=== PATIENT | male | born 1990 | race Caucasian/White ===

== ENCOUNTER 2025-05-04 14:49 | Emergency (ER) | payer SELFPAY ==
[2025-05-04 15:14] LABS: APPEARANCE,URINE CLOUDY; BASOPHILS ABSOLUTE AUTO 0.06 K/uL (0.00-0.20); BASOPHILS PERCENT AUTO 0.7 % (0.0-1.0); EOSINOPHILS ABSOLUTE AUTO 0.15 K/uL (0.00-0.45); EOSINOPHILS PERCENT AUTO 1.8 % (0.0-6.0); GLUCOSE,URINE NEGATIVE (NEGATIVE); IMMATURE GRAN ABSOLUTE AUTO 0.02 K/uL (0.00-0.05); IMMATURE GRAN PERCENT AUTO 0.2 % (0.0-0.4); LYMPHOCYTES ABSOLUTE AUTO 0.75 K/uL (1.00-4.80); LYMPHOCYTES PERCENT AUTO 9.2 % (24.0-44.0); MONOCYTES ABSOLUTE AUTO 0.51 K/uL (0.00-0.80); MONOCYTES PERCENT AUTO 6.3 % (0.0-8.0); NEUTROPHILS ABSOLUTE AUTO 6.62 K/uL (1.80-7.70); NEUTROPHILS PERCENT AUTO 81.8 % (41.0-71.0); NRBC ABSOLUTE 0.00 K/uL (0.00-0.02); NRBC PERCENT 0.0 /100WBC (0.0-0.2); OCCULT BLOOD,URINE NEGATIVE (NEGATIVE); PLATELET COUNT,PLT 448 K/uL (150-400); RED BLOOD CELL COUNT 6.87 M/uL (4.52-5.90); WHITE BLOOD CELL COUNT,WBC 8.11 K/uL (3.9-11.3)
[2025-05-04] MEDS: Ketorolac 30 MG/ML SDV IVPUSH ONE (15:14)
[2025-05-04] MEDS: Ondansetron 4 MG/2 ML SDV IVPUSH ONE (15:15)
[2025-05-04 15:21] LABS: EPITHELIAL CELLS,URINE RARE (NONE-FEW)
[2025-05-04 15:27] LABS: INR 0.99 (0.86-1.11); PTT,PARTIAL THROMBOPLSTIN TIME 22.5 SEC (23.9-30.7)
[2025-05-04] MEDS: Iopamidol 755 MG/ML 500 ML Multipack Bottle IVPUSH ONE (15:33)
[2025-05-04 15:44] LABS: A/G RATIO 1.5 (0.9-1.6); ALANINE AMINOTRANSFERASE,ALT 77.0 IU/L (14-63); ASPARTATE AMNIOTRANSFERASE,AST 45.0 IU/L (15-37); BILIRUBIN TOTAL 0.6 mg/dL (0.2-1.0); BLOOD UREA NITROGEN,BUN 18.0 mg/dL (7.0-18.0); CARBON DIOXIDE,CO2 30.1 mmol/L (21.0-32.0); CHLORIDE,CL 101.0 mmol/L (98-107); CREATINE KINASE,CK 639.0 U/L (26-308); CREATININE 1.2 mg/dL (0.8-1.3); EST CRCL DRUG DOSING (CG) 88.72 mL/min; GLUCOSE RANDOM 122.0 mg/dL (74-106); POTASSIUM,K 4.3 mmol/L (3.5-5.1); PROTEIN TOTAL,TP 7.3 g/dL (6.4-8.2); SODIUM,NA 140.0 mmol/L (136-148)
[2025-05-04 15:46] LABS: LACTIC ACID 1.1 mmol/L (0.4-2.0)
[2025-05-04 15:52] LABS: ESTIMATED GFR 81.0 mL/min (>60)
[2025-05-04 17:53] LABS: AMPHETAMINES SCREEN, URINE NEGATIVE (CUTOFF=500); BUPRENORPHINE SCREEN,URINE NEGATIVE (CUTOFF=10); METHADONE SCREEN, URINE NEGATIVE (CUTOFF=200); METHAMPHETAMINES SCREEN, URINE NEGATIVE (CUTOFF=500); OXYCODONE SCREEN,URINE NEGATIVE (CUT0FF=100); PCP SCREEN,URINE NEGATIVE (CUTOFF=25); THC SCREEN,URINE 20 NG/ML NEGATIVE (CUTOFF=50)
== END 2025-05-04 18:42 | disposition left against medical advice (07) ==
LOC: MW.ED 14:49
DX: K56.609 Unspecified intestinal obstruction, unspecified as to partial versus complete obstruction (principal); Z53.20 Procedure and treatment not carried out because of patient's decision for unspecified reasons; Z75.3 Unavailability and inaccessibility of health-care facilities
CPT/HCPCS: 36415; 74177; 80053; 80305; 81001; 82550; 83605; 83690; 83735; 85025; 85610; 85730; 96360; 96374; 96375; 99284; J1885; J2405; J7030; Q9967